=== PATIENT | female | born 1985 | race Caucasian/White ===

== ENCOUNTER 2021-04-02 03:28 | Day surgery (SDC) | payer BC, SELFPAY ==
[2021-04-02] VITALS (10 sets, daily range): BP systolic 102–132; BP diastolic 58–84; PULSE 58–98; RESP 12–21; TEMP 35.9–36.6; O2SAT 98–100
--- NOTE | ~2021-04-02 | CT_ITS ---
EXAMINATION: CT abdomen pelvis w con DATE: 04/02/2021 06:14 INDICATION: Right lower quadrant pain for 2 days TECHNIQUE: Computed tomography (CT) of the abdomen and pelvis was performed with 100 cc Omnipaque 350 intravenous contrast. The dose-length product was 418.69 mGy-cm. Automated exposure control and iter ative reconstruction technique were employed. COMPARISON: None. FINDINGS: Lung bases are unremarkable. No significant pleural or pericardial effusion. Heart size nor mal. No significant vascular abnormality. No lymphadenopathy. The liver, spleen, pancreas, adrenal glands and kidneys are unremarkable. Gallbladder is present. The re is a serpiginous tubular structure in the right lower abdomen Which is contiguous with the cecum. There is small amount of adjacent free fluid with mural enhanceme nt. This appears to be separate from the adjacent terminal ileum, suspicious for acute appendicitis. Clinically correlate. Small amount of fluid in the endometrium. Small amount of free fluid in the pel vis. No abscess identified. No free air. Gallbladder is present. Nonobstructive bowel gas pattern. Th ere are mildly distended small bowel loops with air-fluid levels, likely ileus. No acute osseous abno rmality. IMPRESSION: 1. Serpiginous enhancing tubular structure contiguous with the cecum, suspicious for acute appendicit is. 2: Mildly thickened terminal ileum with air-fluid levels throughout the small bowel, likely secondary to ileus. 3: Free fluid. No evidence for free air to suggest perforation. Reviewed, dictated and finalized at location A. IMPRESSION: 1. Serpiginous enhancing tubular structure contiguous with the cecum, suspiciou s for acute appendicitis. 2: Mildly thickened terminal ileum with air-fluid levels throughout the small b owel, likely secondary to ileus. 3: Free fluid. No evidence for free air to suggest perforation.
[2021-04-02 04:10] LABS: Basophils Absolute Auto 0.1 K/mm3 (0.0-0.1); Basophils Percent Auto 0.5 % (0.2-1.2); Eosinophils Percent Auto 0.2 % (0-4.4); Hematocrit 38.3 % (37.0-47.0); Hemoglobin 13.4 g/dL (12.0-15.0); Immature Granulocyte Absolute 0.08 K/mm3 (0.00-0.031); Immature Granulocyte Percent A 0.6 % (0-0.5); Lymphocytes Absolute Auto 1.86 K/mm3 (0.9-3.2); Lymphocytes Percent Auto 13.9 % (18.3-44.2); Mean Corpuscular Hemoglobin 32.2 pg (26-34); Mean Corpuscular Volume 92.1 fl (80-100); Mean Platelet Volume 9.7 fl (7.4-10.4); Monocytes Absolute Auto 0.8 K/mm3 (0.1-0.6); Monocytes Percent Auto 5.6 % (2.6-8.5); Neutrophils Absolute Auto 10.6 K/mm3 (1.3-6.7); Neutrophils Percent Auto 79.2 % (45.5-73.1); Platelet Count Result 237 k/mm3 (150-375); Red Blood Count 4.16 M/mm3 (4.2-5.4); White Blood Count 13.4 K/mm3 (4.5-10.0)
[2021-04-02 04:24] LABS: Alanine Aminotransferase 12 U/L (4-35); Albumin Level 4.1 g/dL (3.5-5.1); Alkaline Phosphatase 78 U/L (38-126); Anion Gap 7 mmol/L (8-16); Aspartate Amino Transferase 17 U/L (14-36); Bilirubin,Total 0.6 mg/dL (0.2-1.3); Blood Urea Nitrogen 10 mg/dL (7-17); Calcium 9.1 mg/dL (8.4-10.2); Carbon Dioxide 25 mmol/L (22-30); Chloride 104 mmol/L (98-107); Estimated CRCL calculation 97 ml/min; Estimated Glomerular Filt Rate > 60; Glucose 157 mg/dL (65-110); Lipase 47 U/L (23-300); Potassium 4.1 mmol/L (3.4-5.0); Sodium 136 mmol/L (137-145)
--- NOTE | 2021-04-02 05:49 | ED.GENADULT ---
HPI - General Adult General Chief complaint: Abdominal Pain <Clarence Ramirez MD - Last Filed: 04/02/21 06:57> Stated complaint: abd pain <Clarence Ramirez MD - Last Filed: 04/02/21 06:57> Time Seen by Provider: 04/02/21 05:30 <Clarence Ramirez MD - Last Filed: 04/02/21 06:57> History of Present Illness HPI narrative: Patient is a 35-year-old female who presents the ER with right lower quadrant abdominal pain. Ongoing for 2 days. Rates pain 9/10 at this time. No radiation. Persistent right lower quadrant. Cannot move without having severe pain. No urinary frequency urgency or dysuria. No vaginal bleeding or vaginal discharge. 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 She is currently on medication to try to have menstrual cycle. She is going to follow-up with neurocritical care physician to [facility] next week. No history of ovarian cysts. <Clarence Ramirez MD - Last Filed: 04/02/21 06:57> Related Data Home medications: Home Medications Medication Instructions Recorded Confirmed dextroamphetamine-amphetamine 20 mg PO DAILY 04/02/21 [Adderall XR] norgestimate-ethinyl estradiol 1 tablet PO DAILY 04/02/21 [Ortho Tri-Cyclen (21)] <Clarence Ramirez MD - Last Filed: 04/02/21 06:57> Allergies/adverse reactions: Allergies Allergy/AdvReac Type Severity Reaction Status Date / Time Cephalosporins Allergy Severe Rash Verified 04/02/21 04:00 <Clarence Ramirez MD - Last Filed: 04/02/21 06:57> Review of Systems Review of Systems: All systems reviewed & are unremarkable except as noted in HPI and below <Clarence Ramirez MD - Last Filed: 04/02/21 06:57> Constitutional: Constitutional: Denies chills, Denies fever(s) and Denies weakness <Clarence Ramirez MD - Last Filed: 04/02/21 06:57> Gastrointestinal: Gastrointestinal: Reports abdominal pain, Denies diarrhea, Denies nausea and Denies vomiting <Clarence Ramirez MD - Last Filed: 04/02/21 06:57> Genitourinary: Genitourinary: Denies abnormal vaginal bleeding, Denies nocturia, Denies dysuria and Denies vaginal discharge <Clarence Ramirez MD - Last Filed: 04/02/21 06:57> Musculoskeletal: Musculoskeletal: Denies back pain and Denies muscle cramps <Clarence Ramirez MD - Last Filed: 04/02/21 06:57> PMFSH Past Medical History Medical History: Medical History (Updated 04/02/21 @ 08:01 by Manpreet Fabian DO) Healthy female adult <Clarence Ramirez MD - Last Filed: 04/02/21 06:57> Surgical History Surgical History: Surgical History (Updated 04/02/21 @ 05:53 by Clarence Ramirez MD) History of section <Clarence Ramirez MD - Last Filed: 04/02/21 06:57> Social History Social History: Social History (Updated 04/02/21 @ 05:53 by Clarence Ramirez MD) Smoking status: Never smoker <Clarence Ramirez MD - Last Filed: 04/02/21 06:57> Exam Narrative: GENERAL: Uncomfortable-appearing, well-nourished, and in no acute distress. HEAD: Normocephalic, atraumatic. EYES: PERRL and EOMI. CHEST: Clear to auscultation. No respiratory distress. HEART: Regular rate and rhythm. Normal peripheral pulses. ABDOMEN: Soft, palpation right lower quadrant with guarding, nondistended. EXTREMITIES: Normal range of motion. No edema. SKIN: Warm, dry, no rash. NEURO: Alert and oriented x3. PSYCH: Normal mood and affect. <Clarence Ramirez MD - Last Filed: 04/02/21 06:57> Course Course Emergency Course: Return to myself at shift change seen evaluate myself agree with initial H&P Discussed with patient her cephalosporin allergy allergic 1 cephalosporin has taken amoxicillin with no difficulty Discussed with Dr. Lyons presentation work-up with plan for patient in the OR today request patient received Invanz Discussed with patient plan for ORN agreement all questions answered <Manpreet Fabian DO - Last Filed: 04/02/21 09:04> Vital Sig
[2021-04-02] MEDS: MORPHINE SULFATE (*CRX) 4 MG/ML INJ IV PUSH ×2 (05:51→07:17)
[2021-04-02] MEDS: ONDANSETRON INJ 4 MG/2 ML VIAL IV PUSH (05:51)
[2021-04-02] MEDS: SODIUM CHLORIDE 0.9% IV 1,000 ML 999 ML IV CONT (05:51)
--- NOTE | 2021-04-02 05:59 | PC.NURSE ---
Pt to CT scan at this time.
[2021-04-02 06:05] LABS: Add Urine Microscopic? YES; Appearance Urine Clear (Clear); Bacteria Urine 2+ /hpf; Bilirubin Urine Negative (Negative); Blood Urine Negative (Negative); Color Urine Amber (Yellow); Glucose Urine UA Negative (Negative); Ketones Urine Trace mg/dL (Negative); Leukocyte Esterase Ur Trace LEU/UL (Negative); Mucus Urine Heavy /lpf; Nitrate Urine Positive (Negative); Protein Urine 1+ mg/dL (Negative); RBC Urine 0-2 /hpf (0-2); Specific Grav Ur 1.025 (1.001-1.035); Squamous Epithelial Cell Urine Occasional /hpf (Few); Urobilinogen Urine Negative mg/dL (<2.0)
[2021-04-02] MEDS: ERTAPENEM 1 GM/NS 50 ML 1 GM/50 ML BAG IVPB (08:08)
[2021-04-02] MEDS: MORPHINE SULFATE (*CRX) 2 MG/ML INJ IV PUSH (08:45)
[2021-04-02] MEDS: LACTATED RINGERS 1,000 ML 30 ML IV CONT ×2 (09:00→10:42)
--- NOTE | 2021-04-02 09:13 | WPDANESEPPF ---
Anes - Initial Pre Proc Eval Procedure: Operation Date: 04/02/21 09:00 Proposed Procedures p Laparoscopic Appendectomy - Juan Lyons DO Date/Time: 04/02/21 09:13 Surgeon: Juan Lyons DO Pre Op Diagnosis: abd pain Patient Data Age: 35 Gender: F Height: 1.63 m Weight: 63.63 kg Last Vital Signs Temp 35.9 C L 04/02/21 03:35 Pulse 80 04/02/21 08:31 Resp 12 04/02/21 08:31 BP 108/70 04/02/21 08:31 Pulse Ox 98 04/02/21 08:31 Allergies Allergy/AdvReac Type Severity Reaction Status Date / Time Cephalosporins Allergy Severe Rash Verified 04/02/21 04:00 Home Medications Medication Instructions Recorded Confirmed Type dextroamphetamine-amphetamine 20 mg PO DAILY 04/02/21 History [Adderall XR] norgestimate-ethinyl estradiol 1 tablet PO DAILY 04/02/21 History [Ortho Tri-Cyclen (21)] Laboratory Tests 04/02/21 04/02/21 04/02/21 04:03 04:03 05:52 WBC 13.4 K/mm3 H K/mm3 (4.5-10.0) RBC 4.16 M/mm3 L M/mm3 (4.2-5.4) Hgb 13.4 g/dL g/dL (12.0-15.0) Hct 38.3 % % (37.0-47.0) MCV 92.1 fl fl (80-100) MCH 32.2 pg pg (26-34) MCHC 35.0 g/dl g/dl (32-36) RDW 12.0 % % (11.5-14.5) Plt Count 237 k/mm3 k/mm3 (150-375) MPV 9.7 fl fl (7.4-10.4) Immature Gran % (Auto) 0.6 % H % (0-0.5) Neut % (Auto) 79.2 % H % (45.5-73.1) Lymph % (Auto) 13.9 % L % (18.3-44.2) Barren % (Auto) 5.6 % % (2.6-8.5) Eos % (Auto) 0.2 % % (0-4.4) Baso % (Auto) 0.5 % % (0.2-1.2) Lymph # (Auto) 1.86 K/mm3 K/mm3 (0.9-3.2) Barren # (Auto) 0.8 K/mm3 H K/mm3 (0.1-0.6) Eos # (Auto) 0.0 K/mm3 K/mm3 (0-0.3) Baso # (Auto) 0.1 K/mm3 K/mm3 (0.0-0.1) Abs Immat Gran (auto) 0.08 K/mm3 H K/mm3 (0.00-0.031) Absolute Neuts (auto) 10.6 K/mm3 H K/mm3 (1.3-6.7) Absolute Nucleated RBC 0.0 K/mm3 K/mm3 (0.0-0.012) Nucleated RBC % 0.0 % % (0.0-0.2) Sodium 136 mmol/L L mmol/L (137-145) Potassium 4.1 mmol/L mmol/L (3.4-5.0) Chloride 104 mmol/L mmol/L (98-107) Carbon Dioxide 25 mmol/L mmol/L (22-30) Anion Gap 7 mmol/L L mmol/L (8-16) BUN 10 mg/dL mg/dL (7-17) Creatinine 0.60 mg/dL L mg/dL (0.7-1.0) Estim Creat Clear Calc 97 ml/min ml/min Estimated GFR > 60 (59 - ) Glucose 157 mg/dL H mg/dL (65-110) Calcium 9.1 mg/dL mg/dL (8.4-10.2) Total Bilirubin 0.6 mg/dL mg/dL (0.2-1.3) AST 17 U/L U/L (14-36) ALT 12 U/L U/L (4-35) Alkaline Phosphatase 78 U/L U/L (38-126) Total Protein 7.0 g/dL g/dL (6.3-8.2) Albumin 4.1 g/dL g/dL (3.5-5.1) Lipase 47 U/L U/L (23-300) Urine Color Kaylen (Yellow) Urine Appearance Clear (Clear) Urine pH 7.0 (5.0-9.0) Ur Specific [place] 1.025 (1.001-1.035) Urine Protein 1+ mg/dL H mg/dL (Negative) Urine Glucose (UA) Negative mg/dL mg/dL (Negative) Urine Ketones Trace mg/dL mg/dL (Negative) Ur Blood (Man) Negative (Negative) Urine Nitrate Positive H (Negative) Urine Bilirubin Negative (Negative) Urine Urobilinogen Negative mg/dL mg/dL (<2.0) Leukocyte Esterase Rfl Trace RAJ/UL H RAJ/UL (Negative) Urine RBC 0-2 /hpf /hpf (0-2) Urine WBC 4-6 /hpf H /hpf Ur Squamous Epith Cells Occasional /hpf /hpf (Few) Urine Bacteria 2+ /hpf H /hpf Urine Mucus Heavy /lpf H /lpf Patient hx anesthesia problems: none Family hx anesthesia problems: none Results Review: All pre-operative results and documents have been reviewed as part of the pre-operative
--- NOTE | 2021-04-02 09:18 | WPDHPUPDATE1 ---
History and Physical Update Update Date/Time: 04/02/21 09:18 History and Physical has been reviewed, including an updated exam of the patient. There are NO changes in the patient's condition. Risks, benefits, and alternatives have been discussed and questions answered. Patient agrees to proceed with procedure.
--- NOTE | 2021-04-02 09:20 | PM.IMHP ---
H&P: HPI History of Present Illness Date/Time: 04/02/21 09:20 Chief Complaint: Right lower quadrant pain Narrative: This is a 35-year-old woman who presents to the emergency department with right lower quadrant pain. She had some vague pains 2 nights ago and then pain was becoming more intense throughout the day yesterday and localized to the right lower quadrant. Around 2:00 a.m. her pain was becoming severe enough that she decided to come to the emergency department. She denies any change in bowel habits. She has never experienced anything like this in the past. Review of Systems Review of Systems: All systems reviewed & are unremarkable except as noted in HPI and below Constitutional: Constitutional: Denies chills and Denies fever(s) Eyes: Eyes: Denies change in vision ENT: Denies hearing loss, Denies neck pain and Denies sore throat Cardiovascular: Cardiovascular: Denies chest pain and Denies dyspnea Respiratory: Respiratory: Denies cough, Denies dyspnea and Denies wheezing Gastrointestinal: Gastrointestinal: Reports as per HPI Genitourinary: Genitourinary: Denies hematuria and Denies dysuria Musculoskeletal: Musculoskeletal: Denies arthralgias, Denies joint swelling and Denies neck pain Allergic/Immunologic: Allergic/Immunologic: Denies wheezing PMFSH Past Medical History Medical History ADHD Healthy female adult Status post hysteroscopy Surgical History Surgical History History of section Social History Social History Smoking status: Never smoker Meds Home Medications and Allergies Home Medications Medication Instructions Recorded Confirmed Type dextroamphetamine-amphetamine 20 mg PO DAILY 04/02/21 History [Adderall XR] norgestimate-ethinyl estradiol 1 tablet PO DAILY 04/02/21 History [Ortho Tri-Cyclen (21)] Allergies Allergy/AdvReac Type Severity Reaction Status Date / Time Cephalosporins Allergy Severe Rash Verified 04/02/21 04:00 Vital Signs Vital Signs - 24 hr 04/02/21 03:35 04/02/21 06:39 04/02/21 08:31 Temperature 35.9 C L Pulse Rate 87 98 80 Respiratory Rate 18 17 12 Blood Pressure 132/84 113/67 108/70 Pulse Oximetry 98 100 98 Exam Const: General: alert; No acute distress Orientation/consciousness: patient oriented x3 Limitations: no limitations HENMT: Head: normocephalic and atraumatic Ears: hearing grossly normal bilaterally General nose exam: Normal external nose present and Normal nares present Mouth: Yes Normal oral and palatal mucosa present and Yes moist mucous membranes Eyes: General: appearance normal, both eyes and all related structures Conjunctivae: conjunctivae normal Sclera: sclerae normal Pupils: Equal, round and reactive pupils present EOM: EOMs intact bilaterally Neck: Neck: normal visual inspection, full ROM, no lymphadenopathy, supple and no JVD Lymphatic: no lymphadenopathy noted Chest: Chest palpation & inspection: normal inspection of the chest Resp: Effort & Inspection: normal respiratory effort and able to speak in complete sentences Auscultation: clear to auscultation bilaterally Percussion: percussion normal Cardio: Jugular venous distension: no JVD Rate: regular rate Rhythm: regular rhythm Heart sounds: S1 normal heart sound present and S2 normal heart sound present Peripheral pulses: Peripheral pulses 2+ throughout GI: Inspection: normal to inspection GI Palp: Yes Soft to palpation, Yes Tenderness to palpation present (GI) (Right lower quadrant pain), Yes Guarding due to palpation present (GI), No Hernia present, No Rebound tenderness present and Yes Other GI palpation findings present (Positive Rovsing sign) Percussion: Yes normal to percussion Auscultation: normal bowel sounds : General: Yes no CVA tenderness Back/Spine/Pelvis
--- NOTE | 2021-04-02 10:39 | W.PM.PROC2 ---
Procedure Note - Detailed Date of Procedure 04/02/21 Pre-op Diagnosis abd pain Post-op Diagnosis other (Bilateral the metal salpinx with mild torsion) Procedure Performed Laparoscopic linear salpingostomy and drainage of the hematosalpinx Surgeon Maury Ivory MD Anesthesia general Indications This is a 35-year-old female who was admitted emergently with right lower quadrant pain and suspected appendicitis. Dr. Juan mendez noted bilateral hematosalpinx and torsion of the right tube Findings Normal-appearing uterus. Normal-appearing ovaries. Bilateral hematosalpinx with torsion of the right tube Description of Procedure The patient was already under general anesthetic an trocar sites had been placed by Dr. wil mendez. Please see his operative report for full details when I was called a large right hematosalpinx was noted with torsion. Using sharp dissection this was grasped and a linear incision made and drained of brown old blood. Sharp dissection was undertaken to relieve the torsion and tissue viability was good. The ovary up on that side appeared within normal limits as did the uterus and the ovary on the left. A smaller hemato salpinx was seen on the left and did not appear inflamed and was left intact irrigation was undertaken until clear then. Dr. wil baron proceeded from there and closure. Blood loss for my portion of the procedure was 5cc Estimated Blood Loss 5 Drains No Packing No Pathology none sent Complications No immediate complications Condition stable
[2021-04-02] MEDS: BUPIVACAINE HCL 0.5% PF 30 ML VIAL INFILTRATE (10:43)
--- NOTE | 2021-04-02 10:51 | W.PM.PROC2 ---
Procedure Note - Detailed Date of Procedure 04/02/21 Pre-op Diagnosis Acute appendicitis Post-op Diagnosis other (Acute appendicitis, hematosalpinx) Procedure Performed Laparoscopic appendectomy Surgeon Juan Lyons DO Anesthesia general and local (0.5% bupivacaine with epinephrine) Indications This is a 35-year-old woman who presented to the emergency department with right lower quadrant pain for the past [address] of her abdomen and pelvis showed evidence of a serpiginous structure near the cecum that was suspicious for appendicitis. She had tenderness in the right lower quadrant and a positive Rovsing sign. Discussions were made with the patient about treatment options and decision was made to proceed with laparoscopic appendectomy, possible open. Findings Laparoscopic appendectomy was performed. Upon inspecting the abdomen laparoscopically, there were adhesions from her prior up to her abdominal wall. The omentum that was adhesed up to the abdominal wall was carefully taken down using blunt dissection and scissors with electrocautery. Upon inspecting the right lower quadrant, the appendix appeared adhesed up to the right fallopian tube. The appendix appeared minimally dilated but overall normal. The right fallopian tube however did appear somewhat torsed and very dilated. Gynecology was called in to assess the area. Please refer to Dr. Daisy Cohn's operative report for his details. The appendix was removed and sent to the lab for pathology. A thorough inspection was made around the remainder of the abdomen, and no other significant abnormalities were noted. There was no evidence of perforation or abscess. Description of Procedure Procedure as well as risks, benefits, and alternatives were explained to the patient. The patient agreed to proceed. Written consent was obtained and placed in chart prior to procedure. The patient was brought back to surgical suite. She was placed supine on operating table. Time-out was done to confirm the patient and procedure. The patient was then intubated by the Anesthesia Department. Her abdomen was prepped and draped in sterile fashion using chlorhexidine prep. A 12 mm incision was made at the inferior portion of the umbilicus. Blunt dissection was carried out down to the linea alba. The linea alba was then incised using a 15 blade scalpel. Then bluntly entered into the peritoneal cavity. A 12 mm trocar was then inserted, and carbon dioxide insufflation was used to create a pneumoperitoneum. The camera was inserted and the abdomen was inspected. No immediate abnormalities were identified. The patient was then placed in slight Trendelenburg position and rotated to the left. A 5 mm incision was made in the suprapubic region in midline and a 5 mm trocar was inserted under direct visualization. A 5 mm incision was made in the left lower quadrant and a 5 mm trocar was inserted under direct visualization. The right lower quadrant was carefully inspected. The cecum was identified and then this was traced back to the appendix. The appendix was identified and grasped at the mesoappendix and lifted anteriorly. Careful blunt dissection was carried out at the base of the appendix through the mesoappendix using a [place] grasper. An Endo-EFE 45 mm blue load stapler was then advanced across the base of the appendix and clamped and fired. A white reload was then clamped across the mesoappendix and fired. This freed up our appendix completely. It was then placed in an EndoCatch bag and removed through the umbilical port. The staple lines were then inspected. Hemostasis appeared adequate and the staple lines appeared secure. The area was then irrigated with sterile saline. The pelvis was then carefully inspected and irrigated with sterile saline as well and the remainder of the abdomen was carefully inspected. The patient was then flattened out in bed. One final inspection was made around the abdomin
[2021-04-02] MEDS: fentaNYL CITRATE INJ (*CRX) 100 MCG/2 ML VIAL 25 MCG IV PUSH ×3 (10:57→11:55)
[2021-04-02] MEDS: oxyCODONE HCL (*CRX) 5 MG TAB IR PO (12:03)
== END 2021-04-02 12:40 | disposition home or self-care (01) ==
LOC: ANHED 08:25 → ANHSURGERY 08:45
PROVIDERS: Emergency Medicine; Emergency Provider Emergency Medicine; PCP Internal Medicine; Visit Provider Surgery
PROC: 0DTJ4ZZ Resection of Appendix, Percutaneous Endoscopic Approach (ICD-10-PCS; CPT 44970; principal; 2021-04-02 09:00)
DX: K35.30 Acute appendicitis with localized peritonitis, without perforation or gangrene (principal); N83.521 Torsion of right fallopian tube; N83.6 Hematosalpinx; R10.9 Unspecified abdominal pain; F90.9 Attention-deficit hyperactivity disorder, unspecified type
CPT/HCPCS: 44970; 36415; 74177; 80053; 81001; 81025; 83690; 85025; 88304; 96361; 96365; 96375; 96376; 99285; A9270; J0330; J1100; J1335; J2250; J2270; J2405; J2704; J3010; J7030; J7120; Q9967

== ENCOUNTER 2023-10-06 19:33 | Observation (INO) | payer BC, SELFPAY ==
[2023-10-06] VITALS (20 sets, daily range): BP systolic 120–162; BP diastolic 79–91; PULSE 62–78; RESP 12–22; TEMP 36.4; O2SAT 99–100
--- NOTE | ~2023-10-06 | MR_ITS ---
MRI of the brain Clinical History: Multiple sclerosis Technique: Axial and sagittal T1-weighted images were acquired. These were followed by axial T2-weigh angle, diffusion weighted, gradient, and FLAIR images. Following intravenous administration of 14 cc Mu ltiHance gadolinium, T1-weighted fat-sat imaging was performed in the axial, coronal, and sagittal pl anes. Findings: No abnormal signal seen in the brain parenchyma. No acute infarct, intracranial hemorrhage, or mass lesion. Ventricles and subarachnoid spaces are unremarkable. Orbits are unremarkable. Paranasal sinuses and m astoid air cells are clear. Major intracranial flow voids appear intact. Sagittal midline structures are intact. No abnormal postcontrast enhancement identified. IMPRESSION: Unremarkable exam. Reviewed, dictated and finalized at location M. IMPRESSION: Unremarkable exam.
--- NOTE | ~2023-10-06 | CT_ITS ---
EXAMINATION: CTA brain carotid DATE: 10/06/2023 21:08 INDICATION: mid facial numbness, potpartum TECHNIQUE: Computed tomographic angiography (CTA) of the head was performed without and with 100 mL O mnipaque-350 intravenous contrast. CTA of the neck was performed with intravenous contrast. The dose- length product was 1651.60 mGy-cm. Maximum intensity projection and volume rendered 3D-reconstruction s were created by the technologist on a separate workstation. COMPARISON: None. FINDINGS: CT BRAIN: No acute large vessel infarct, intracranial hemorrhage, mass, or hydrocephalus. CTA HEAD: No large vessel occlusion, aneurysm, high flow vascular malformation, nidus or extravasation. Persist ent origin of the left posterior cerebral artery. CTA NECK: Aortic arch and proximal great vessels: Normal arch anatomy. Right common carotid, carotid bifurcation, and internal carotid artery: No plaque.There is 0% stenosi s of the proximal right internal carotid artery relative to normal distal artery lumen diameter (NASC ET criteria). Left common carotid, carotid bifurcation, and internal carotid artery: No plaque.There is 0% stenosis of the proximal left internal carotid artery relative to normal distal artery lumen diameter (NASCET criteria). Vertebral arteries: No significant plaque or stenosis. The origin of the left vertebral artery is obs cured by beam hardening from adjacent venous contrast. Other findings: Subcentimeter left thyroid hypodensities that requires no additional evaluation. Dege nerative changes in the cervical spine. IMPRESSION: No large vessel intracranial occlusion, high-grade intracranial stenosis, or aneurysm. The origin of the left vertebral artery was obscured by artifact from adjacent venous contrast, other moseley no carotid or vertebral artery occlusion, dissection, or significant stenosis. Reviewed, dictated and finalized at location K. IMPRESSION: No large vessel intracranial occlusion, high-grade intracranial stenosis, or an eurysm. The origin of the left vertebral artery was obscured by artifact from adjacent venous contrast, otherwise no carotid or vertebral artery occlusion, dissection , or significant stenosis.
--- NOTE | ~2023-10-06 | MR_ITS ---
MRI of the thoracic spine Clinical History: Multiple sclerosis Technique: Axial T2-weighted and gradient images, and sagittal T1-weighted, T2-weighted, and STIR theron ges were acquired. Following intravenous administration of 14 cc MultiHance gadolinium, T1-weighted f at-sat imaging was performed in the axial and sagittal planes. Findings: There is no fracture or subluxation of the thoracic spine. Vertebral bodies maintain normal height and alignment. No bone marrow signal reality seen. No significant disc bulge or herniation seen at any thoracic level. No spinal canal stenosis or cord compression. No epidural mass or collection. No abnormal signal seen in the spinal cord. No abnormal postcontrast enhancement. Paravertebral soft tissues are unremarkable. Impression: Unremarkable exam. Reviewed, dictated and finalized at [facility]. Impression: Unremarkable exam.
--- NOTE | ~2023-10-06 | MR_ITS ---
MR Venogram of the Brain Clinical Indication: Mendoza's palsy Technique MR venogram was done using coronal 2D time of flight technique. Findings: The superior sagittal sinus appears normal. The left and right transverse sinuses appears normal. The sigmoid sinuses appear normal bilaterally. The internal cerebral veins, vein of Gabriel and straight sinus are patent. Impression: No evidence of venous sinus thrombosis. Reviewed, dictated and finalized at [facility]. Impression: No evidence of venous sinus thrombosis.
--- NOTE | ~2023-10-06 | MR_ITS ---
MRI of the cervical spine Clinical History: Multiple sclerosis Technique: Axial T2-weighted and gradient images, and sagittal T1-weighted, T2-weighted, and STIR theron ges were acquired. Following intravenous administration of 14 cc MultiHance gadolinium, T1-weighted f at-sat imaging was performed in the axial and sagittal planes. Findings: There is no fracture or subluxation of the cervical spine. Vertebral bodies maintain normal height and line. No bone marrow signal abnormality seen. No significant disc bulge or herniation seen at any cervical level. No spinal canal stenosis or cord compression. There are minimal facet joint degenerative changes. No definite neural foraminal narrowi ng identified. No abnormal signal seen in the spinal cord. Vertebral soft tissues are unremarkable. No abnormal post contrast enhancement identified. Impression: No evidence for multiple sclerosis. Minimal degenerative change. Reviewed, dictated and finalized at [facility]. Impression: No evidence for multiple sclerosis. Minimal degenerative change.
--- NOTE | ~2023-10-06 | XR_ITS ---
EXAMINATION: XR chest 1V portable Exam Date/Time: 10/06/2023 20:10 CDT HISTORY: facail numbness Comparison: None. RESULT: Lines, tubes, and devices: None. Lungs and pleura: Clear. Cardiomediastinal silhouette: Normal. Other: No acute osseous or upper abdominal finding. IMPRESSION: No acute cardiopulmonary process. Reviewed, dictated and finalized at location K.
[2023-10-06 19:55] LABS: Basophils Absolute Auto 0.1 K/mm3 (0.0-0.1); Basophils Percent Auto 0.8 % (0.2-1.2); Eosinophils Absolute Auto 0.1 K/mm3 (0-0.3); Eosinophils Percent Auto 1.3 % (0-4.4); Hematocrit 39.4 % (37.0-47.0); Hemoglobin 12.3 g/dL (12.0-15.0); Immature Granulocyte Absolute 0.02 K/mm3 (0.00-0.031); Immature Granulocyte Percent A 0.3 % (0-0.5); Lymphocytes Absolute Auto 2.64 K/mm3 (0.9-3.2); Lymphocytes Percent Auto 35.4 % (18.3-44.2); Mean Corpuscular HGB Conc 31.2 g/dl (32-36); Mean Corpuscular Hemoglobin 25.6 pg (26-34); Mean Corpuscular Volume 81.9 fl (80-100); Mean Platelet Volume 9.6 fl (7.4-10.4); Monocytes Absolute Auto 0.4 K/mm3 (0.1-0.6); Monocytes Percent Auto 5.1 % (2.6-8.5); Neutrophils Absolute Auto 4.3 K/mm3 (1.3-6.7); Neutrophils Percent Auto 57.1 % (45.5-73.1); Platelet Count Result 225 k/mm3 (150-375); Red Blood Count 4.81 M/mm3 (4.2-5.4); Red Cell Distribution Width 15.9 % (11.5-14.5); White Blood Count 7.5 K/mm3 (4.5-10.0)
--- NOTE | 2023-10-06 19:57 | ECG_ITS ---
Measurements Intervals Ferdinand Rate: 64 P: 37 OH: 135 QRS: 78 QRSD: 90 T: 66 QT: 397 Avg RR: 931 QTc: 406 QTcB: 411 QTcF: 406 Interpretive Statements SINUS RHYTHM NORMAL ECG SEE SCANNED COPY FOR SIGNATURE MTDD
[2023-10-06 20:05] LABS: Alanine Aminotransferase 41 U/L (6-35); Albumin Level 4.3 g/dL (3.5-5.1); Alkaline Phosphatase 112 U/L (38-126); Anion Gap 6 mmol/L (4-12); Aspartate Amino Transferase 31 U/L (14-36); Bilirubin,Total 0.6 mg/dL (0.2-1.3); Blood Urea Nitrogen 11 mg/dL (7-17); Carbon Dioxide 28 mmol/L (22-30); Chloride 104 mmol/L (98-107); Estimated CRCL calculation 72 ml/min; Estimated Glomerular Filt Rate > 60; Glucose 87 mg/dL (65-110); INR 0.9; Potassium 3.3 mmol/L (3.4-5.0); Prothrombin Time 12.9 Seconds (11.1-14.7); Sodium 138 mmol/L (137-145)
[2023-10-06 20:06] LABS: Partial Thromboplastin Time 28.5 Seconds (22.3-36.8)
--- NOTE | 2023-10-06 20:14 | ED.GENADULT ---
HPI - General Adult General Chief complaint: Neuro Symptoms/Deficit Stated complaint: facial numbness Time Seen by Provider: 10/06/23 19:48 History of Present Illness HPI narrative: Patient is a 38-year-old female who presents to the emergency department this evening complaining mid facial numbness. Patient states that her symptoms started yesterday evening with numbness along her nose and today she noticed that it has extended up between her eyebrows and to her mid forehead. Patient initially went to an urgent care to rule out Mendoza's palsy but was sent here for further evaluation due to concern for stroke. Patient denies any history of strokes, any risk factors include hypertension, diabetes, hyperlipidemia and tobacco use. Patient's only risk factor is that she is 1 month . Denies any family history of blood clotting disorder. Patient admits that she has been having mild headaches but is unsure if that is due to lack of sleep since she has a new born. Patient denies any changes to her vision including double vision but feels as though she can see her nose more prominently, as if her vision is somehow deviated slightly inward, she denies any pain with extraocular movement and denies any additional neurological symptoms including any focal weaknes, extremity numbness and tingling. Denies any gait instability. Patient also denies any recent URI or sinus infection. There no other modifying, alleviating, or precipitating factors at this time. Related Data Home Medications Medication Instructions Recorded Confirmed dextroamphetamine-amphetamine ER 30 mg PO DAILY 04/02/21 04/19/21 20 mg 24hr capsule,extend release (Adderall XR) norgestimate-ethinyl estradiol 1 tablet PO DAILY 04/02/21 04/19/21 0.18 mg/0.215mg/0.25mg-35 mcg(21)tablet dextroamphetamine-amphetamine 5 mg 10/06/23 tablet [id number] < 1 pkg PO 10/06/23 mg-iron oral combo pack Allergies Allergy/AdvReac Type Severity Reaction Status Date / Time Cephalosporins Allergy Severe Rash Verified 10/06/23 19:37 Review of Systems Review of Systems: All systems are reviewed and are negative unless stated otherwise in the HPI. [facility] Past Medical History Medical History ADHD Healthy female adult Status post hysteroscopy Surgical History Surgical History History of appendectomy 04/02/[address] Lyons History of section Social History Social History Smoking status: Never smoker Exam Narrative: General: Alert, awake, afebrile, in no acute distress. HEENT: PERRL, no rhinorrhea, no post nasal drip, clear tympanic membranes bilaterally, no conjunctival injection. Neck: Trachea midline, no JVD, no lymphadenopathy. Cardiovascular: Regular rate and rhythm, no murmurs, rubs or gallops, no peripheral edema. Respiratory: Clear to auscultation bilaterally, no tachypnea, no wheezing, no rhonchi, no rubs, no respiratory distress. Abdomen: Soft, nontender, nondistended, no rebound, no guarding, no peritoneal signs. Musculoskeletal: No joint swelling or deformity, normal muscle tone. Skin: No rashes or petechia, no signs of infection. Psychiatric: Alert and oriented, normal behavior and judgment for situation. Neurological: Alert and oriented to person, place, and time. Follows all commands. 5/5 motor strength of the bilateral upper and lower extremity, sensation intact bilateral upper and extremity, cranial nerves 2-12 grossly intact, patient does have some numbness along her nose extending up between her eyebrows and to her mid forehead, speech is clear and fluent, gait intact and normal without ataxia. Course Vital Signs Vital signs: Vital Signs Temperature 97.6 F 10/06/23 19:34 Pulse Rate 66 10/06/23 19:34 Respiratory Rate 16
[2023-10-06 20:17] LABS: Troponin I < 0.012 ng/mL (0.000-0.034)
[2023-10-06 20:35] LABS: SPREG INTERNAL CONTROL Positive; Serum Qual hCG Negative
--- NOTE | 2023-10-06 20:43 | PC.NURSE ---
Patient taken to imaging at this time.
--- NOTE | 2023-10-06 21:58 | PM.IMHP ---
H&P: HPI History of Present Illness Date/Time: 10/06/23 21:58 Chief Complaint: facial numbness Narrative: this is a 38-year-old female with past medical history significant for ADHD, recent on August 29, 2023. Patient presents to the emergency room after visiting the urgent care where she initially went for concerns of likely Mendoza's palsy however patient does not have lid ptosis her complaint is numbness of her nose, retro-orbital headache, denies any lightheadedness, dizziness, vertigo, chills, fevers, nausea, vomiting. According to patient this has been present for roughly 2 days. Preliminary workup has been essentially nonrevealing. Patient has been placed on observation for further evaluation management and treatment. EXAMINATION: CTA brain carotid DATE: 10/06/2023 21:08 INDICATION: mid facial numbness, potpartum TECHNIQUE: Computed tomographic angiography (CTA) of the head was performed without and with 100 mL Omnipaque-350 intravenous contrast. CTA of the neck was performed with intravenous contrast. The dose-length product was 1651.60 mGy-cm. Maximum intensity projection and volume rendered 3D-reconstructions were created by the technologist on a separate workstation. COMPARISON: None. FINDINGS: CT BRAIN: No acute large vessel infarct, intracranial hemorrhage, mass, or hydrocephalus. CTA HEAD: No large vessel occlusion, aneurysm, high flow vascular malformation, nidus or extravasation. Persistent origin of the left posterior cerebral artery. CTA NECK: Aortic arch and proximal great vessels: Normal arch anatomy. Right common carotid, carotid bifurcation, and internal carotid artery: No plaque.There is 0% stenosis of the proximal right internal carotid artery relative to normal distal artery lumen diameter (NASCET criteria).? Left common carotid, carotid bifurcation, and internal carotid artery: No plaque.There is 0% stenosis of the proximal left internal carotid artery relative to normal distal artery lumen diameter (NASCET criteria). Vertebral arteries: No significant plaque or stenosis. The origin of the left vertebral artery is obscured by beam hardening from adjacent venous contrast. Other findings: Subcentimeter left thyroid hypodensities that requires no additional evaluation. Degenerative changes in the cervical spine. IMPRESSION: No large vessel intracranial occlusion, high-grade intracranial stenosis, or aneurysm. The origin of the left vertebral artery was obscured by artifact from adjacent venous contrast, otherwise no carotid or vertebral artery occlusion, dissection, or significant stenosis. EXAMINATION:? XR chest 1V portable Exam Date/Time:? 10/06/2023 20:10 CDT HISTORY: facail numbness ? Comparison:? None. RESULT: Lines, tubes, and devices:? None. Lungs and pleura:? Clear. Cardiomediastinal silhouette:? Normal. Other:? No acute osseous or upper abdominal finding. ? IMPRESSION: No acute cardiopulmonary process. Review of Systems Review of Systems: Facial numbness, retro-orbital headache Constitutional: Constitutional: Denies chills, Denies fatigue, Denies fever(s), Reports headache(s) ( retro-orbital), Denies malaise, Denies night sweats, Denies poor appetite and Denies weakness Eyes: Eyes: Denies blurry vision, Denies diplopia, Denies floaters, Denies loss of peripheral vision, Denies loss of vision, Reports other visual disturbances and Denies seeing flashes ENT: Denies dysphagia, Denies vertigo, Denies dizziness and Denies odynophagia Cardiovascular: Cardiovascular: Denies chest pain, Denies leg edema, Denies radiating jaw, neck or arm pain and Denies palpitations Respiratory: Respiratory: Denies chest congestion, Denies cough and Denies dyspnea Gastrointestinal: Gastrointestinal: Denies abdominal pain, Denies dyspepsia, Denies heartburn, Denies diarrhea, Denies nausea and Denies vomiting Genitourinary: Genitourinary: Denies dysuria Musculosk
[2023-10-06] MEDS: POTASSIUM CHLORIDE 20 MEQ PACKET (FOR LIQUID) PO (23:12)
--- NOTE | 2023-10-07 00:03 | ADMGEN ---
This patient, Maegan Lai, was admitted to 2 Medical Room 241-01. Patient/family oriented to hospital policies and general routines including ID bracelet, bed and alarms, visiting hours, pain management, procedures, bathroom and other care routines, personal items, smoking policy, room service/diet, and visiting hours. Information on how to activate the Rapid Response Team has been discussed. Patient/Family are encouraged to report perceived risks to care and to ask questions if they do not understand what they are told or what they should do.
[2023-10-07 00:10] VITALS: BP 142/85; PULSE 67; RESP 18; TEMP 36.4; O2SAT 99
[2023-10-07 00:15] VITALS: BMI 26.2
[2023-10-07 06:00] VITALS: BP 101/48; PULSE 64; RESP 18; TEMP 36.5; O2SAT 97
--- NOTE | 2023-10-07 09:25 | PM.IMPN ---
Progress Note: A&P Assessment and Plan (1) Facial numbness: Code(s): R20.0 - Anesthesia of skin Status: Acute Assessment and Plan: Patient presented to the hospital for worsening mid face numbness for 2 days. Numbness is noted on the middle of her nose and mid forehead with associated temporal headache. No other complaints at this time. Concern for [place] Palsy due to facial numbness and recent , however forehead spared. - Head/Neck CTA unremarkable - MRV ordered - HSV, EBV, Covid/Flu/RSV pending - Prednisone 60 mg daily for 1 week for concern of bells palsy. Spoke with Dr. Daisy Cohn and medication is safe with . - Neurology consulted (2) ADHD: Code(s): F90.9 - Attention-deficit hyperactivity disorder, unspecified type Status: Acute Assessment and Plan: Well controlled on home medication. - Continue Adderall Time Spent With Patient Time with patient: 25 - 35 minutes Subjective Date/time seen: 10/07/23 09:25 Interval history: 38 year old female with past medical history of ADHD and recent C section ( 1 month) presented to the hospital for worsening numbness to her mid face. Patient is pleasant sitting in bed with family at bedside. She states that the numbness started along the middle of her nose 2 days ago and has since spread to the middle of her forehead. She notes a temporal headache but denies vision changes including blurred vision and double vision. She notes minimal clear drainage from her left eye and states that she notices her nose more in her field of vision than usual. She has not been around any sick contacts, denies a rash, ear pain, chest pain, shortness of breath, nausea/vomiting and changes in bowel/bladder. Due to concern for bells palsy patient was started on prednisone. Spoke with Dr. Daisy Cohn and prednisone is safe with . MRV and viral studies were ordered. Neurology consulted. Review of Systems Review of Systems: All systems reviewed & are unremarkable except as noted in HPI and below Exam Narrative: AF HR 81 RR 18 SpO2 98 BP 105/68 General: well nourished, well-developed female in no acute respiratory distress who is nontoxic appearing, sitting on side of bed. HEENT: Normocephalic. Atraumatic. Pupils equal round reactive to light. Extraocular movement intact. Forehead spared. Sclera clear and anicteric. Nares patent. No oral lesions. Moist mucous membranes. No facial asymmetry. Chest: Lungs are clear to auscultation bilaterally. No wheezes or crackles. CV: Heart was regular rate and rhythm. S1-S2. No murmurs, gallops, or rubs. Abd: Abdomen was soft. Nontender. Nondistended. Positive bowel sounds. No organomegaly or masses. Ext: No clubbing, cyanosis, or edema. 2+ DP pulses bilaterally. Neuro: Patient is alert and oriented x4. Speech is clear. Psych: Normal mood and affect. Patient is pleasant and cooperative. Skin: Warm and dry. No rashes noted. Numbness of midface. Objective Data Vital Signs Vital Signs: Vital Signs - 24 hr 10/06/23 19:34 10/06/23 19:52 10/06/23 19:53 Temperature 97.6 F Pulse Rate 66 76 72 Respiratory Rate 16 17 19 Blood Pressure 162/79 H 128/91 H 128/91 H Pulse Oximetry 100 100 100 Oxygen Delivery Room Air 10/06/23 19:56 10/06/23 20:00 10/06/23 20:15 Temperature Pulse Rate 73 70 69 Respiratory Rate 12 13 17 Blood Pressure Pulse Oximetry 99 100 100 Oxygen Delivery 10/06/23 20:30 10/06/23 20:31 10/06/23 20:54 Temperature Pulse Rate 69 62 69 Respiratory Rate 19 13 Blood Pressure 123/91 H Pulse Oximetry 99 100 100 Oxygen Delivery 10/06/23 21:05 10/06/23 21:16 10/06/23 21:31 Temperature Pulse Rate 76 69 70 Respiratory Rate 20 14 22 H Blood Pressure Pulse Oximetry Oxygen Delivery 10/06/23 21:50 10/06/23 23:33 10/06/23 22:10 Temperature Pulse Rate 68 78 71 Respiratory Rate 15 15 20 Blood Pressure 128/79 Pulse Ox
[2023-10-07 09:34] LABS: Influenza A QL RT-PCR Negative (Negative); Influenza B QL RT-PCR Negative (Negative); RSV RNA, RT-PCR Negative (Negative); SARS-CoV-2 RNA PCR Negative (Negative)
[2023-10-07] MEDS: ACETAMINOPHEN 325 MG TABLET 650 MG PO (13:22)
[2023-10-07] MEDS: predniSONE 20 MG TABLET 60 MG PO (13:22)
[2023-10-07 13:33] VITALS: BP 105/68; PULSE 81; RESP 18; TEMP 36.9; O2SAT 98
--- NOTE | 2023-10-07 15:46 | WPDNEURCNPN ---
Assessment and Plan Assessment and plan (1) ADHD: Code(s): F90.9 - Attention-deficit hyperactivity disorder, unspecified type Status: Acute (2) Facial numbness: Code(s): R20.0 - Anesthesia of skin Status: Acute (3) Change in vision: Code(s): H53.9 - Unspecified visual disturbance Status: Acute (4) Demyelinating disease: Code(s): G37.9 - Demyelinating disease of central nervous system, unspecified Status: Acute Plan Possibility of venous sinus thrombosis considering the Venous MRI has been ordered, in addition considering the age of the patient's symptomatology we need to rule out the possible demyelinating disease MRI of the brain cervical thoracic spine have also been ordered before any further recommendations are made Consult date: 10/07/23 HPI: Maegan Lai is a 38 year old female admitted to the hospital through the emergency room with complaints of mid facial numbness and with the information the symptomatology started yesterday evening with numbness along her nose with further extension between her eyebrows dosed and to her forehead initials she went to an urgent care to rule out the possibility of Mendoza's palsy but was sent to the [facility] for further evaluation she gave no history of previous stroke or any underlying risk factors such as diabetes mellitus, hypertension, or tobacco use. She is at present 1 month and she has no history of clotting factors in her family she has been experiencing mild headaches but that she attributed to the lack of sleep she had no difficulties in the vision she did describe unusual phenomenon that she keep seeing her nasal bridge as if her but she has no gait instability. Her outpatient medications included dextroamphetamine 30mg daily. She is allergic to cephalosporin he has history of ADHD, and initial exam in the emergency room was only compatible with numbness along her nose extending up to between her eye bruise on forehead vital signs were normal with blood pressure 162/[address] scan of the head and CTA head and neck were normal he was admitted to the hospital for further evaluation and considering the history of recent delivery MRV was ordered in the ER rule out the venous sinus thrombosis. Her CBC was normal, CMP with potassium 3.3, complete lab was negative chest x-ray was negative, head neck CTA was negative, head and brain venogram has been ordered still pending. [facility] Past Medical History Medical History ADHD Healthy female adult Status post hysteroscopy Surgical History Surgical History History of appendectomy 04/02/[address] Lyons History of section Social History Social History Smoking status: Never smoker Alcohol intake: never Substance use: never Do You Feel Safe in your Home?: Yes Lack of Transportation: No Lack of Food: Never True Current Housing: I Have Housing Concerned About Future Housing: No Difficulty Paying Gas/Electric Bills: No Difficulty Paying for Meds: No Currently Unemployed: No Education: Master's Degree or Higher Difficulty w/ Childcare or Family Care: No Spiritual care concerns: No Meds Home Medications and Allergies Home Medications Medication Instructions Recorded Confirmed Type dextroamphetamine-amphetamine ER 30 mg PO DAILY 04/02/21 10/07/23 History 20 mg 24hr capsule,extend release (Adderall XR) dextroamphetamine-amphetamine 5 mg 7.5 mg PO BID 10/06/23 10/07/23 History tablet (Adderall) [id number] < 1 1 pkg PO DAILY 10/06/23 10/07/23 History mg-iron oral combo pack Allergies Allergy/AdvReac Type Severity Reaction Status Date / Time Cephalosporins Allergy Severe Rash Verified 10/06/23 19:37 Vital Signs Vital Signs - 24
--- NOTE | 2023-10-07 16:16 | PC.NURSE ---
spoke with pharmacy to have patient's BID dose of adderal verified. Patient does not have 30 mg XR tablet here.
--- NOTE | 2023-10-07 16:17 | PHAR ---
Home medication identified. E339 blue tablet. 5mg amphetamine/dextroamphetamine. 2med RN instructed to where Home med Log sheet on the Intranet.
--- NOTE | 2023-10-07 17:37 | PC.NURSE ---
Patient adamant about keeping home Adderall prescription locked in patient closet in room. [employer] has explained reasoning for locking medication up while inpatient and locked it in patient closet
[2023-10-07 19:24] VITALS: BP 118/49; PULSE 80; RESP 18; TEMP 36.6; O2SAT 99
[2023-10-08 06:00] VITALS: BP 107/48; PULSE 95; RESP 18; TEMP 36.8; O2SAT 98
[2023-10-08 07:14] LABS: Hemoglobin 11.7 g/dL (12.0-15.0); Mean Corpuscular HGB Conc 31.6 g/dl (32-36); Mean Corpuscular Hemoglobin 26.2 pg (26-34); Mean Corpuscular Volume 82.8 fl (80-100); Mean Platelet Volume 10.1 fl (7.4-10.4); Platelet Count Result 265 k/mm3 (150-375); Red Blood Count 4.47 M/mm3 (4.2-5.4); Red Cell Distribution Width 15.9 % (11.5-14.5); White Blood Count 9.8 K/mm3 (4.5-10.0)
[2023-10-08 07:22] LABS: Anion Gap 6 mmol/L (4-12); Blood Urea Nitrogen 15 mg/dL (7-17); Calcium 9.5 mg/dL (8.4-10.2); Carbon Dioxide 24 mmol/L (22-30); Chloride 108 mmol/L (98-107); Estimated CRCL calculation 82 ml/min; Estimated Glomerular Filt Rate > 60; Glucose 114 mg/dL (65-110); Potassium 3.9 mmol/L (3.4-5.0); Sodium 138 mmol/L (137-145)
[2023-10-08 09:24] VITALS: O2SAT 99
[2023-10-08] MEDS: predniSONE 20 MG TABLET 60 MG PO (09:41)
[2023-10-08 14:12] VITALS: BP 123/72; PULSE 78; RESP 16; TEMP 37; O2SAT 97
--- NOTE | 2023-10-08 18:14 | PM.DS ---
DS: Admitting Diagnosis Discharge Date 10/08/2023 Admitting Diagnosis Facial numbness ADHD DS: Discharge Diagnosis Discharge Diagnosis (1) Facial numbness: Code(s): R20.0 - Anesthesia of skin Status: Acute (2) ADHD: Code(s): F90.9 - Attention-deficit hyperactivity disorder, unspecified type Status: Acute DS: Summary Hospital Course Reason for hospitalization: Facial numbness ADHD Hospital Course: Patient presented to the hospital for worsening mid face numbness for 2 days. Numbness is noted on the middle of her nose and mid forehead with associated temporal headache. No other complaints at this time. Head/neck CTA and MRV were ordered in the ED and both were unremarkable. There was concern for [place] Palsy due to facial numbness and recent , however forehead spared. Patient was started on prednisone taper. Neurology was consulted and a brain MRI, cervical spine MRI, and thoracic spine MRI were all negative. Labs and vital signs remained stable throughout admission. Patient was discharged home with family in a stable condition. She states that the numbness seems to be improving today. She will continue the prednisone taper as prescribed. Follow up with neurology in 3 weeks and her PCP in 1 week. Status at Discharge Functional status at discharge: independent ambulation Time Spent with Patient Time attestation: Total time spent providing and/or coordinating discharge services: Time spent: Greater than 30 minutes Exam Narrative: ?AF HR 78 RR 16 SpO2 97 BP 123/72 General: well nourished, well-developed female in no acute respiratory distress who is nontoxic appearing, sitting on side of bed. HEENT: Normocephalic. Atraumatic. Pupils equal round reactive to light. Extraocular movement intact. Forehead spared. Sclera clear and anicteric. Nares patent. No oral lesions. Moist mucous membranes. No facial asymmetry. Chest: Lungs are clear to auscultation bilaterally. No wheezes or crackles. CV: Heart was regular rate and rhythm. S1-S2. No murmurs, gallops, or rubs. Abd: Abdomen was soft. Nontender. Nondistended. Positive bowel sounds. No organomegaly or masses. Ext: No clubbing, cyanosis, or edema. 2+ DP pulses bilaterally. Neuro: Patient is alert and oriented x4.? Speech is clear. Psych: Normal mood and affect. Patient is pleasant and cooperative. Skin: Warm and dry. No rashes noted. Numbness of midface. DS: Data Data Completed and Pending Completed studies during hospitalization: Cervical spine MRI thoracic spine MRI brain MRI head/brain MRV head/ neck CTA chest x-ray Labs on day of discharge: Labs from last 24 hours 10/08/23 06:59 WBC 9.8 RBC 4.47 Hgb 11.7 L Hct 37.0 MCV 82.8 MCH 26.2 MCHC 31.6 L RDW 15.9 H Plt Count 265 MPV 10.1 Sodium 138 Potassium 3.9 Chloride 108 H Carbon Dioxide 24 Anion Gap 6 BUN 15 Creatinine 0.70 Estim Creat Clear Calc 82 Estimated GFR > 60 Glucose 114 H Calcium 9.5 Discharge Plan Discharge Attending physician on discharge: Mamadou Ríos Consulting providers: Mahesh Son Discharging Clinician: Kaia Polo Anticipated Discharge Date/Time: 10/08/23 17:05 Patient Disposition: Home, Self-Care Activity: as tolerated Diet: as tolerated Discharge Instructions: You were seen at the hospital for numbness to your midface. You were started on prednisone for concern of [place] Palsy. Continue this taper as prescribed. While in the hospital you underwent several imaging studies including MRI of your brain, cervical spine, and thoracic spine; brain MRV; and head/neck CTA. All imaging was unremarkable. You were evaluated by neurology who plan to follow up with you in 3 weeks. Follow up with your primary care provider in 1 week. If you develop worsening headaches, numbness, changes in vision, or weakness return to the hospital or call your primary care provider. Patient Instructions: Antib
[2023-10-09 14:23] LABS: EVB DNA,QN PCR Not Detected Log cps/mL; Epstein Barr Virus PCR Not Detected copies/mL; Source Whole Blood
== END 2023-10-08 17:45 | disposition home or self-care (01) ==
LOC: ANHED 23:03 → ANH2MED 10-08 17:10
PROVIDERS: Student in an Organized Health Care Education/Training Program; Admitting Provider Internal Medicine; Emergency Provider Emergency Medicine; Visit Provider Student in an Organized Health Care Education/Training Program
DX: O99.893 Other specified diseases and conditions complicating puerperium (principal); R20.0 Anesthesia of skin; H53.9 Unspecified visual disturbance; O99.345 Other mental disorders complicating the puerperium; F90.9 Attention-deficit hyperactivity disorder, unspecified type; O99.355 Diseases of the nervous system complicating the puerperium; G37.9 Demyelinating disease of central nervous system, unspecified; Z98.891 History of uterine scar from previous surgery; Z20.822 Contact with and (suspected) exposure to COVID-19; Z79.3 Long term (current) use of hormonal contraceptives; Z79.899 Other long term (current) drug therapy
CPT/HCPCS: 36415; 70496; 70498; 70544; 70553; 71045; 72156; 72157; 80048; 80053; 81025; 83735; 84484; 84703; 85025; 85027; 85610; 85730; 86695; 86696; 87637; 93005; 99285; A9270; A9577; G0378; J7512; Q9967